=== PATIENT | male | born 1980 | race Caucasian/White ===

== ENCOUNTER → 2017-04-01 | Outpatient (CLI) | payer SELFPAY | END | disposition home or self-care (01) | LOC: RAD 12:39 | DX: M25.552 Pain in left hip (principal); M25.551 Pain in right hip; M25.851 Other specified joint disorders, right hip; M25.852 Other specified joint disorders, left hip ==

== ENCOUNTER → 2018-02-03 | Outpatient (CLI) | payer OTHER | END | disposition home or self-care (01) | LOC: LAB 10:59 | DX: M46.1 Sacroiliitis, not elsewhere classified (principal) ==